=== PATIENT | male | born 1960 | race Caucasian/White ===

== ENCOUNTER 2020-04-22 09:54 | Day surgery (SDC) | payer SELFPAY ==
[~2020-04-22] VITALS: Ht 175.3 cm; Wt 117.6 kg
[~2020-04-22 09:54] MED LIST: AMOCLA875 PO; HYDACE5 PO
[2020-04-22] MEDS ORDERED: GABA100 PO (11:06)
[2020-04-22] MEDS ORDERED: MELO7.5 PO (11:08)
[2020-04-22] MEDS ORDERED: CLON1 PO (11:09)
== END 2020-04-22 13:00 | disposition home or self-care (01) ==
LOC: ORSCSDS 09:54
PROVIDERS: Orthopaedic Surgery
PROC: 01N50ZZ Release Median Nerve, Open Approach (ICD-10-PCS; principal; 2020-04-22 11:15)
DX: G56.02 Carpal tunnel syndrome, left upper limb (principal); F41.9 Anxiety disorder, unspecified; E66.9 Obesity, unspecified; Z68.38 Body mass index [BMI] 38.0-38.9, adult; Z79.899 Other long term (current) drug therapy
CPT/HCPCS: A9270; J0690; J2250; J3010; J7120

== ENCOUNTER 2020-06-10 08:31 | Day surgery (SDC) | payer SELFPAY ==
[~2020-06-10] VITALS: Ht 175.3 cm; Wt 117.7 kg
[~2020-06-10 08:31] MED LIST changes: +CLON1 PO; +GABA100 PO; +MELO7.5 PO
[2020-06-10] MEDS ORDERED: IBUP200 (09:18)
--- NOTE | 2020-06-10 10:19 | NUR ---
06/10/20 1019 Kendall Garcia COMPLETE IN OR BY DR. NAVARRETE.
== END 2020-06-10 11:16 | disposition home or self-care (01) ==
LOC: ORSCSDS 08:31
PROVIDERS: Orthopaedic Surgery
PROC: 01N50ZZ Release Median Nerve, Open Approach (ICD-10-PCS; principal; 2020-06-10 09:45)
DX: G56.01 Carpal tunnel syndrome, right upper limb (principal); I10 Essential (primary) hypertension; G47.33 Obstructive sleep apnea (adult) (pediatric); E66.9 Obesity, unspecified; Z68.38 Body mass index [BMI] 38.0-38.9, adult; F17.220 Nicotine dependence, chewing tobacco, uncomplicated
CPT/HCPCS: J0690; J1100; J2250; J2405; J3010; J7120

== ENCOUNTER → 2020-12-12 | Outpatient (CLI) | payer SELFPAY ==
[~2020-12-12] MED LIST changes: +IBUP200
[2020-12-13 15:03] LABS: Adenovirus F 40/41 Not Detected (NOT DETECT); Astrovirus Not Detected (NOT DETECT); Campylobacter Sp Not Detected (NOT DETECT); Cryptosporidium Not Detected (NOT DETECT); Cyclospora Cayetanensis Not Detected (NOT DETECT); E. Coli O157 Not Detected (NOT DETECT); Entamoeba Histolytica Not Detected (NOT DETECT); Enteroaggregative E. coli-EAEC Not Detected (NOT DETECT); Enteropathogenic E. coli-EPEC Not Detected (NOT DETECT); Enterotoxigenic E. coli-ETEC Not Detected (NOT DETECT); Giardia Lamblia Not Detected (NOT DETECT); Norovirus GI/GII Not Detected (NOT DETECT); Plesiomonas Shigelloides Not Detected (NOT DETECT); Rotavirus A Not Detected (NOT DETECT); Salmonella Sp Not Detected (NOT DETECT); Sapovirus Not Detected (NOT DETECT); Shiga Toxin-prod E. coli-STEC Not Detected (NOT DETECT); Shigella/Enteroin E. coli-EIEC Not Detected (NOT DETECT); Vibrio Cholerae Not Detected (NOT DETECT); Vibrio Sp Not Detected (NOT DETECT); Yersinia Enterocolitica Not Detected (NOT DETECT)
== END ==
LOC: LAB SHORT 09:10
PROVIDERS: Family Medicine
DX: A08.4 Viral intestinal infection, unspecified (principal); Z88.5 Allergy status to narcotic agent
CPT/HCPCS: 0097U; 87324

== ENCOUNTER 2021-08-11 02:57 | Emergency (ER) | payer SELFPAY ==
[~2021-08-11] VITALS: Ht 175.3 cm; Wt 99.8 kg
[2021-08-11] MEDS ORDERED: TEMAZEPAM PO (03:10)
[2021-08-11] MEDS ORDERED: NEURONTIN300 MG PO (03:10)
[2021-08-11] MEDS ORDERED: OXYC5 PO (06:08)
== END 2021-08-11 06:36 | disposition home or self-care (01) ==
LOC: ER 02:57
DX: S01.111A Laceration without foreign body of right eyelid and periocular area, initial encounter (principal); S13.4XXA Sprain of ligaments of cervical spine, initial encounter; S30.0XXA Contusion of lower back and pelvis, initial encounter; Z87.891 Personal history of nicotine dependence; Z79.899 Other long term (current) drug therapy; W22.03XA Walked into furniture, initial encounter
CPT/HCPCS: 36415; 70450; 72125; A9270; J1170; J2405

== ENCOUNTER → 2024-04-28 | Outpatient (CLI) | payer OTHER ==
[~2024-04-28] MED LIST changes: +NEURONTIN300 MG PO; +ONDA4ODT MM; +OXYC5 PO; +Percocet 5-3251 EACH PO; +SILDENAFIL CIT100 MG PO; +TEMAZEPAM PO; +TRAZ50 PO
[2024-04-28 11:15] LABS: BASOPHILS ABSOLUTE AUTO 0.06 K/mm3 (0.00-0.23); BASOPHILS PERCENT AUTO 1 % (0-2); EOSINOPHILS ABSOLUTE AUTO 0.41 K/mm3 (0.00-0.68); EOSINOPHILS PERCENT AUTO 4 % (0-6); Hemoglobin 13.1 g/dL (13.5-17.5); IMMATURE GRAN ABSOLUTE AUTO 0.11 K/mm3 (0.00-0.10); IMMATURE GRAN PERCENT AUTO 1 % (0-1); LYMPHOCYTES ABSOLUTE AUTO 1.36 K/mm3 (0.84-5.20); LYMPHOCYTES PERCENT AUTO 14 % (21-46); MONOCYTES PERCENT AUTO 9 % (4-13); Mean Corpuscular HGB 32.4 pg (26.0-34.0); Mean Corpuscular HGB Conc 35.4 g/dL (31.5-36.5); Mean Corpuscular Volume 92 fL (80-100); Mean Platelet Volume 10.8 fL (9.1-12.4); NEUTROPHILS ABSOLUTE AUTO 7.21 K/mm3 (1.96-9.15); NEUTROPHILS PERCENT AUTO 72 % (41-73); Platelet Count 227 K/mm3 (150-400); RDW Coefficient Variation 12.6 % (11.7-14.2); RDW Standard Deviation 41.8 fL (35.1-46.3); Red Blood Cell Count 4.04 M/mm3 (4.30-5.90); White Blood Cell Count 10.05 K/mm3 (4.00-11.30)
[2024-04-28 11:25] LABS: Alanine Aminotransfer (ALT/SGP 48 U/L (12-78); Albumin, Blood 3.7 g/dL (3.4-5.0); Albumin/Globulin Ratio 0.9 (0.8-1.8); Alk Phos 89 U/L (40-126); Anion Gap 15 mmol/L (3-11); Aspartate Aminotrans (AST/SGOT 28 U/L (12-37); Bilirubin, Total 0.9 mg/dL (0.1-1.0); Blood Urea Nitrogen 14 mg/dL (8-24); Bun/Creatinine Ratio 13.7 (12.0-20.0); CHOL/HDL RATIO 4.2; CO2, Blood 27 mmol/L (21-32); Calcium, Blood 9.2 mg/dL (8.5-10.1); Chloride, Blood 102 mmol/L (98-108); Cholesterol 248 mg/dL (50-200); Creatinine, Blood 1.02 mg/dL (0.60-1.20); Globulin, Blood 4.3 g/dL (2.2-4.0); Glomerular Filtration Rate 82 (60-); Glucose, Blood 107 mg/dL (70-99); HDL Cholesterol 59 mg/dL (>39); LDL/HDL RATIO 2.7; Low Density Lipoprotein Chol 159 mg/dL (<110); Potassium, Blood 4.4 mmol/L (3.5-5.5); Sodium, Blood 140 mmol/L (136-145); Triglycerides 150 mg/dL (30-160); Very Low Density Lipoprot Chol 30 mg/dL (6-32)
[2024-04-28 12:31] LABS: PSA, %Free 26.3 %
== END ==
LOC: LAB SHORT 10:45 → LAB 10:45
PROVIDERS: Chiropractor
DX: N39.0 Urinary tract infection, site not specified (principal); N40.1 Benign prostatic hyperplasia with lower urinary tract symptoms; R73.9 Hyperglycemia, unspecified
CPT/HCPCS: 80053; 80061; 83036; 84153; 84154; 85025; 87077; 87086; 87186

== ENCOUNTER 2024-08-30 00:35 | Observation (INO) | payer OTHER ==
[2024-08-30] VITALS (16 sets, daily range): BP systolic 122–204; BP diastolic 68–98
[~2024-08-30] VITALS: Ht 175.3 cm; Wt 118.3 kg
[2024-08-30] MEDS ORDERED: Vancomycin HCL 2,000 MG in NS 520 ML IV ONE (01:40)
[2024-08-30] MEDS ORDERED: CefTRIAXone Sodium 1,000 MG in NS 100 ML IV ONE (01:40)
[2024-08-30] MEDS ORDERED: Morphine Sulfate 4 MG/1 ML Injection IV ONE (01:40)
[2024-08-30 02:13] LABS: Alanine Aminotransfer (ALT/SGP 42.0 U/L (12-78); Albumin, Blood 3.6 g/dL (3.4-5.0); Albumin/Globulin Ratio 0.9 (0.8-1.8); Anion Gap 7.0 mmol/L (3-11); Aspartate Aminotrans (AST/SGOT 24.0 U/L (12-37); Bilirubin, Total 0.3 mg/dL (0.1-1.0); Blood Urea Nitrogen 24.0 mg/dL (8-24); CO2, Blood 27.0 mmol/L (21-32); Calcium, Blood 8.5 mg/dL (8.5-10.1); Chloride, Blood 109.0 mmol/L (98-108); Creatinine, Blood 1.26 mg/dL (0.60-1.20); Globulin, Blood 3.8 g/dL (2.2-4.0); Glucose, Blood 108.0 mg/dL (70-99); Potassium, Blood 4.0 mmol/L (3.5-5.5); Sodium, Blood 139.0 mmol/L (136-145); Total Protein, Blood 7.4 g/dL (6.4-8.2)
[2024-08-30 02:20] LABS: BASOPHILS ABSOLUTE AUTO 0.08 K/mm3 (0.00-0.23); BASOPHILS PERCENT AUTO 1 % (0-2); EOSINOPHILS ABSOLUTE AUTO 0.64 K/mm3 (0.00-0.68); EOSINOPHILS PERCENT AUTO 9 % (0-6); Hematocrit 35.0 % (37.0-53.0); Hemoglobin 12.3 g/dL (13.5-17.5); IMMATURE GRAN ABSOLUTE AUTO 0.13 K/mm3 (0.00-0.10); IMMATURE GRAN PERCENT AUTO 2 % (0-1); LYMPHOCYTES ABSOLUTE AUTO 1.12 K/mm3 (0.84-5.20); LYMPHOCYTES PERCENT AUTO 15 % (21-46); MONOCYTES ABSOLUTE AUTO 0.68 K/mm3 (0.16-1.47); MONOCYTES PERCENT AUTO 9 % (4-13); Mean Corpuscular HGB Conc 35.1 g/dL (31.5-36.5); Mean Corpuscular Volume 93 fL (80-100); NEUTROPHILS ABSOLUTE AUTO 4.73 K/mm3 (1.96-9.15); NEUTROPHILS PERCENT AUTO 64 % (41-73); NRBC ABSOLUTE 0.00 K/mm3 (0.00-0.02); NRBC Auto 0.0 /100 WBC (0.0-0.2); Platelet Count 212 K/mm3 (150-400); RDW Coefficient Variation 12.1 % (11.7-14.2); RDW Standard Deviation 41.6 fL (35.1-46.3)
[2024-08-30] MEDS ORDERED: Morphine Sulfate 4 MG/1 ML Injection IV PRN (02:25)
[2024-08-30] MEDS ORDERED: Naloxone HCl 0.4MG / ML 1ML Vial IV PRN (02:30)
[2024-08-30] MEDS ORDERED: Ondansetron HCl 2 MG / ML 2ML Vial IV PRN ×2 (02:30→13:55)
[2024-08-30] MEDS ORDERED: Vancomycin (Pharmacy Consult) IV SCH (02:30)
[2024-08-30] MEDS ORDERED: Ketorolac Tromethamine 15mg Vial IV ONE (02:35)
--- NOTE | 2024-08-30 03:50 | NUR ---
ARRIVAL TO UNIT PT ARRIVED TO UNIT VIA GOURNEY FROM ED. ABLE TO IND AMBULATE TO BED. A&O x4. VSS. COMPLIANT c NPO STATUS. IV ABX INFUSING. PT REPORTS L INDEX FINGER SWOLLEN. 2 STITCHES FROM SURG 7.10.25 C/D/I. NO DISCOLORATION VISUALIZED, FLEXION IMPAIRED. PT REPORTS PAIN TOLERABLE AT THIS TIME c MEDICATION PER EMAR IN ED. ORIENTED TO UNIT, CALL LIGHT IN REACH.
[2024-08-30] MEDS ORDERED: TAMSULOSIN HCL0.4 M1 PO (04:14)
--- NOTE | 2024-08-30 05:48 | NUR ---
SHIFT SUMMARY NO CHANGES SINCE ARRIVAL TO UNIT. PT DENIES NEEDS AT THIS TIME. CALL LIGHT IN REACH, BED IN LOWEST POSITION, WILL REPORT TO DAY RN.
[2024-08-30] MEDS ORDERED: Lactobacil 2-S.Thermo-Bifido 1 1 Cap PO SCH (09:00)
[2024-08-30] MEDS ORDERED: Dextran/Hypromellose/Glycerin 15 DROP/ML BTL BOTHEYES PRN (09:40)
--- NOTE | 2024-08-30 12:14 | NUR ---
TO DAY SURGERY VIA WC
[2024-08-30] MEDS ORDERED: FentaNYL Citrate 50 MCG/ML 2 ML Injection ONE (12:15)
[2024-08-30] MEDS ORDERED: Midazolam HCl 1MG / ML 2ML Vial ONE (12:16)
[2024-08-30] MEDS ORDERED: Bupivacaine 0.5% HCl 5 MG/ML 30MLVIAL ONE (12:18)
[2024-08-30] MEDS ORDERED: CeFAZolin Sodium 1000 mg Vial ONE ×2 (13:16)
[2024-08-30] MEDS ORDERED: FentaNYL Citrate 50 MCG/ML 2 ML Injection IV PRN ×2 (13:55→14:00)
[2024-08-30] MEDS ORDERED: HYDROmorphone HCl/Pf 1MG SYR IV PRN (13:55)
[2024-08-30] MEDS ORDERED: HYDROmorphone HCl/Pf 1MG SYR ONE (13:56)
[2024-08-30] MEDS ORDERED: Metoclopramide HCl 5MG / ML 2ML Vial IV PRN (14:00)
[2024-08-30] MEDS ORDERED: Labetalol HCL 5 MG/ML 4ML Injection (Single Dose) IV PRN (14:00)
--- NOTE | 2024-08-30 14:40 | NUR ---
POST OP RETURN TO SURGICAL UNIT VIA GOURNEY. ABLE TO STAND TO TRANSFER TO BED. R HAND w/ GAUZE & MARA WRAP. WIGGLES FINGERS & BRISK CAP REFILL. ELEVATED ON PILLOWS & ICE PACK APPLIED.
[2024-08-30] MEDS ORDERED: NS 250 ML IV PRN (19:30)
[2024-08-31 04:22] VITALS: BP 118/80
[2024-08-31] MEDS ORDERED: CefTRIAXone Sodium 1,000 MG in NS 100 ML IV SCH (06:00)
[2024-08-31 06:12] LABS: BASOPHILS ABSOLUTE AUTO 0.01 K/mm3 (0.00-0.23); BASOPHILS PERCENT AUTO 0 % (0-2); EOSINOPHILS ABSOLUTE AUTO 0.01 K/mm3 (0.00-0.68); EOSINOPHILS PERCENT AUTO 0 % (0-6); Hematocrit 32.1 % (37.0-53.0); Hemoglobin 11.8 g/dL (13.5-17.5); IMMATURE GRAN ABSOLUTE AUTO 0.09 K/mm3 (0.00-0.10); IMMATURE GRAN PERCENT AUTO 1 % (0-1); LYMPHOCYTES ABSOLUTE AUTO 0.64 K/mm3 (0.84-5.20); LYMPHOCYTES PERCENT AUTO 6 % (21-46); MONOCYTES ABSOLUTE AUTO 0.52 K/mm3 (0.16-1.47); MONOCYTES PERCENT AUTO 5 % (4-13); Mean Corpuscular HGB Conc 36.8 g/dL (31.5-36.5); Mean Corpuscular Volume 93 fL (80-100); NEUTROPHILS ABSOLUTE AUTO 9.82 K/mm3 (1.96-9.15); NEUTROPHILS PERCENT AUTO 89 % (41-73); NRBC ABSOLUTE 0.00 K/mm3 (0.00-0.02); NRBC Auto 0.0 /100 WBC (0.0-0.2); Platelet Count 303 K/mm3 (150-400); RDW Coefficient Variation 12.1 % (11.7-14.2); RDW Standard Deviation 40.2 fL (35.1-46.3)
[2024-08-31 06:28] LABS: Anion Gap 8.0 mmol/L (3-11); Blood Urea Nitrogen 20.0 mg/dL (8-24); CO2, Blood 25.0 mmol/L (21-32); Calcium, Blood 8.2 mg/dL (8.5-10.1); Chloride, Blood 108.0 mmol/L (98-108); Creatinine, Blood 0.98 mg/dL (0.60-1.20); Glucose, Blood 135.0 mg/dL (70-99); Potassium, Blood 4.3 mmol/L (3.5-5.5); Sodium, Blood 137.0 mmol/L (136-145)
[2024-08-31 07:18] VITALS: BP 131/82
[2024-08-31 14:46] VITALS: BP 137/93
--- NOTE | 2024-08-31 16:00 | NUR ---
ASSUMED CARE OF PATIENT AT THIS TIME.
--- NOTE | 2024-08-31 18:44 | NUR ---
PT HAS BEEN STABLE SINCE THIS RN ASSUMED CARE. PT POST OP DAY 1 I+D RIGHT TRIGGER FINGER. PT HAD DRESSING CHANGED TODAY. DRESSING CDI. CONT ABX. MEDICATED PRN FOR PAIN PER EMAR, PT STATES EFFECTIVE. TOLERATING DIET. INDEP IN ROOM. USES CALL LIGHT APPROPRIATELY. PENDING CULTURES.
[2024-08-31 19:38] VITALS: BP 143/82
[2024-09-01] MEDS ORDERED: Heparin Sodium,Porcine 5,000 UNIT/0.5 ML SDV SC SCH
[2024-09-01 05:23] VITALS: BP 139/73
[2024-09-01 07:18] VITALS: BP 141/80
[2024-09-01 07:25] LABS: BASOPHILS ABSOLUTE AUTO 0.06 K/mm3 (0.00-0.23); BASOPHILS PERCENT AUTO 1 % (0-2); EOSINOPHILS ABSOLUTE AUTO 0.35 K/mm3 (0.00-0.68); EOSINOPHILS PERCENT AUTO 4 % (0-6); Hematocrit 31.2 % (37.0-53.0); Hemoglobin 11.1 g/dL (13.5-17.5); IMMATURE GRAN ABSOLUTE AUTO 0.16 K/mm3 (0.00-0.10); IMMATURE GRAN PERCENT AUTO 2 % (0-1); LYMPHOCYTES ABSOLUTE AUTO 1.78 K/mm3 (0.84-5.20); LYMPHOCYTES PERCENT AUTO 19 % (21-46); MONOCYTES ABSOLUTE AUTO 0.74 K/mm3 (0.16-1.47); MONOCYTES PERCENT AUTO 8 % (4-13); Mean Corpuscular HGB Conc 35.6 g/dL (31.5-36.5); Mean Corpuscular Volume 92 fL (80-100); NEUTROPHILS ABSOLUTE AUTO 6.53 K/mm3 (1.96-9.15); NEUTROPHILS PERCENT AUTO 68 % (41-73); NRBC ABSOLUTE 0.00 K/mm3 (0.00-0.02); NRBC Auto 0.0 /100 WBC (0.0-0.2); Platelet Count 204 K/mm3 (150-400); RDW Coefficient Variation 12.4 % (11.7-14.2); RDW Standard Deviation 41.2 fL (35.1-46.3)
[2024-09-01 07:44] LABS: Anion Gap 9 mmol/L (3-11); Blood Urea Nitrogen 17 mg/dL (8-24); CO2, Blood 25 mmol/L (21-32); Calcium, Blood 8.0 mg/dL (8.5-10.1); Chloride, Blood 108 mmol/L (98-108); Creatinine, Blood 1.02 mg/dL (0.60-1.20); Glucose, Blood 93 mg/dL (70-99); Potassium, Blood 3.8 mmol/L (3.5-5.5); Sodium, Blood 138 mmol/L (136-145); Vancomycin, Trough 18.3 ug/mL (5.0-10.0)
--- NOTE | 2024-09-01 07:45 | NUR ---
SHIFT SUMMARY NOC. PT POD 2 FOR I&D FOR RIGHT INDEX FINGER. DRESSING ON FINGER C/D/I. PT MEDICATED PER EMAR WITH ORAL OXY PRN. PT REPORTS IMPROVEMENT OF SX. PT TOLERATING PO AND VOIDING URINE. MAKES NEEDS KNOWN, CALL LIGHT IN REACH.
[2024-09-01 08:40] VITALS: BP 127/84
--- NOTE | 2024-09-01 09:01 | NUR ---
CP/ANXIETY REPORTS HE IS UNSURE IF HE IS HAVING CP OR INDIGESTION. NO SOB, DIAPHORESIS, OR PALPITATIONS. MD CALLED & NEW ORDERS OBTAINED.
[2024-09-01] MEDS ORDERED: AMOCLA875 PO (14:16)
[2024-09-01] MEDS ORDERED: LACT PO (14:17)
[2024-09-01] MEDS ORDERED: OXYC5 PO (14:18)
--- NOTE | 2024-09-01 14:40 | NUR ---
DISCHARGE R HAND REDRESSED & WIPED w/ ALCOHOL PRIOR TO DC. DISCUSSED WOUND CARE w/ PT & STATES UNDERSTANDING. MEDS FAXED TO DRUG & HARD Rx GIVEN FOR OXYCODONE. GAUZE, MARA WRAP, BANDAIDS, & ALCOHOL SWABS SENT. DECLINED WC OUT & AMBULATES OUT EASILY.
== END 2024-09-01 14:47 | disposition home or self-care (01) ==
LOC: ER 00:35 → SURS 00:36
PROVIDERS: Emergency Medicine; Internal Medicine; Orthopaedic Surgery Sports Medicine; ADMIT Student in an Organized Health Care Education/Training Program
PROC: 0X9J0ZZ Drainage of Right Hand, Open Approach (ICD-10-PCS; principal; 2024-08-30 12:30)
DX: M65.841 Other synovitis and tenosynovitis, right hand (principal); B95.61 Methicillin susceptible Staphylococcus aureus infection as the cause of diseases classified elsewhere; N40.0 Benign prostatic hyperplasia without lower urinary tract symptoms; E78.5 Hyperlipidemia, unspecified; Z87.891 Personal history of nicotine dependence; Z79.899 Other long term (current) drug therapy; Z88.5 Allergy status to narcotic agent; Z98.890 Other specified postprocedural states
CPT/HCPCS: 36415; 80048; 80053; 80202; 83605; 83735; 84484; 85025; 85651; 86140; 87040; 87070; 87071; 87075; 87077; 87147; 87186; 87205; 93005; 93010; 94762; 96365; 96366; 96367; 96375; 96376; 99284-25; A9270; G0378; J0690; J0696; J1171; J1644; J1885; J2250; J2270; J2704; J3010; J3373; J7040; J7050; J7120

== ENCOUNTER 2024-09-03 01:50 | Emergency (ER) | payer OTHER ==
[~2024-09-03] VITALS: Ht 180.3 cm; Wt 83.9 kg
[~2024-09-03 01:50] MED LIST changes: +LACT PO; +TAMSULOSIN HCL0.4 M1 PO
[2024-09-03] MEDS ORDERED: Morphine Sulfate 4 MG/1 ML Injection IV ONE (03:10)
[2024-09-03] MEDS ORDERED: Clindamycin 600mg in D5W 50 ML IV ONE (03:10)
[2024-09-03 03:29] LABS: BASOPHILS ABSOLUTE AUTO 0.09 K/mm3 (0.00-0.23); BASOPHILS PERCENT AUTO 1 % (0-2); EOSINOPHILS ABSOLUTE AUTO 0.49 K/mm3 (0.00-0.68); EOSINOPHILS PERCENT AUTO 7 % (0-6); Hematocrit 34.1 % (37.0-53.0); Hemoglobin 12.1 g/dL (13.5-17.5); IMMATURE GRAN ABSOLUTE AUTO 0.16 K/mm3 (0.00-0.10); IMMATURE GRAN PERCENT AUTO 2 % (0-1); LYMPHOCYTES ABSOLUTE AUTO 1.29 K/mm3 (0.84-5.20); LYMPHOCYTES PERCENT AUTO 18 % (21-46); MONOCYTES ABSOLUTE AUTO 0.74 K/mm3 (0.16-1.47); MONOCYTES PERCENT AUTO 10 % (4-13); Mean Corpuscular HGB Conc 35.5 g/dL (31.5-36.5); Mean Corpuscular Volume 92 fL (80-100); NEUTROPHILS ABSOLUTE AUTO 4.38 K/mm3 (1.96-9.15); NEUTROPHILS PERCENT AUTO 61 % (41-73); NRBC ABSOLUTE 0.00 K/mm3 (0.00-0.02); NRBC Auto 0.0 /100 WBC (0.0-0.2); Platelet Count 237 K/mm3 (150-400); RDW Coefficient Variation 12.1 % (11.7-14.2); RDW Standard Deviation 40.5 fL (35.1-46.3)
[2024-09-03 03:47] LABS: Anion Gap 9.0 mmol/L (3-11); Blood Urea Nitrogen 17.0 mg/dL (8-24); C-REACTIVE PROTEIN, EXT RANGE 1.84 mg/dL (0.000-0.300); CO2, Blood 27.0 mmol/L (21-32); Calcium, Blood 8.8 mg/dL (8.5-10.1); Chloride, Blood 106.0 mmol/L (98-108); Creatinine, Blood 0.99 mg/dL (0.60-1.20); Glucose, Blood 117.0 mg/dL (70-99); Potassium, Blood 3.8 mmol/L (3.5-5.5); Sodium, Blood 138.0 mmol/L (136-145)
[2024-09-03 06:29] VITALS: BP 159/104
== END 2024-09-03 06:29 | disposition home or self-care (01) ==
LOC: ER 01:50
PROVIDERS: Student in an Organized Health Care Education/Training Program
DX: G89.18 Other acute postprocedural pain (principal); M79.644 Pain in right finger(s); E78.5 Hyperlipidemia, unspecified; G47.33 Obstructive sleep apnea (adult) (pediatric); Z79.899 Other long term (current) drug therapy; Z87.891 Personal history of nicotine dependence
CPT/HCPCS: 73120; 80048; 83605; 85025; 85651; 86140; 96365; 96375; 99283-25; J2270